=== PATIENT | female | born 1970 | race Caucasian/White ===

== ENCOUNTER → 2016-07-14 | Outpatient (CLI) | payer BC ==
--- NOTE | 2016-07-14 19:22 | Diagnostic Imaging Report ---
INDICATION: Digital mammogram bilateral screening. This is the patient's baseline study. At this time, there are no current complaints. The current study was also evaluated with a Computer Aided Detection (CAD) system. FINDINGS: The fibroglandular tissue in both breasts is heterogeneously dense. This does limit the sensitivity of this exam. There is no primary or secondary sign of malignancy noted. IMPRESSION: 1. There is no evidence of malignancy. 2. The patient should have her annual bilateral screening mammogram on schedule in July of 2017. ACR BI-RADS Category 1: Negative. Result letter will be mailed to the patient. Note: At least 10% of breast cancer is not imaged by mammography. Dictated by: Dictated on workstation # [id number]
== END ==
LOC: RAD 08:51
PROVIDERS: ATTEND Family Medicine
DX: Z12.31 Encounter for screening mammogram for malignant neoplasm of breast (principal)
CPT/HCPCS: 77067

== ENCOUNTER 2018-01-30 08:30 | Outpatient (CLI) | payer BC ==
[~2018-01-30] VITALS: Ht 170.2 cm; Wt 108.9 kg
[2018-01-30] MEDS ORDERED: L-NO1TBD PO (08:49)
[2018-01-30] MEDS ORDERED: CITA40TA11 PO (08:49)
[2018-01-30] MEDS ORDERED: MULT-35 PO (08:49)
== END 2018-01-30 11:06 | disposition home or self-care (01) ==
LOC: PREOP 08:30
PROVIDERS: ATTEND Internal Medicine
DX: Z01.818 Encounter for other preprocedural examination (principal)

== ENCOUNTER 2018-01-31 07:03 | Day surgery (SDC) | payer BC ==
--- NOTE | 2018-01-27 17:53 | HISTORY AND PHYSICAL ---
DATE OF SERVICE: EGD HISTORY AND PHYSICAL REFERRING PHYSICIAN: Dr. Morgan. HISTORY: The patient is a 47-year-old white female, who reports six week history of intermittent epigastric abdominal pain and lower precordial chest pain. Most often, will wake her up at night and lasts for an hour or so. It does not radiate and is not usually associated with nausea or vomiting. She reports no bowel habit change and she denies melena or bright red blood per rectum. She has no known past history of cholecystitis, pancreatitis or reported irritable bowel syndrome. She was started on Dexilant 4 weeks ago and reports only a questionable mild benefit. There does not appear to be any association with what she eats or with meal timing. She has had no associated dysphagia and denies odynophagia at the time of her pain. It does seem to be worse in the supine position. She denies any past history of reflux disease even while . PAST MEDICAL HISTORY: Significant for depression for which she takes citalopram 40 mg daily. OTHER MEDICATIONS: Include Seasonique 0.15/30 mcg control pills and recently started Dexilant 60 mg daily. She reports no known drug allergies. She is intolerant to CODEINE. SOCIAL HISTORY: She is with two children. She is employed with a 10+ pack year smoking history, but quit 10 years ago. She reports only occasional alcohol intake and no illicit drug use. FAMILY HISTORY: She is not aware of any family history for GI tract malignancy. Father has history of hypertension, living in his late 60s as is her mother, who reportedly has a history of degenerative disk disease with lumbar spine and anxiety. She has a maternal grandfather with a history of stroke later in life and a maternal grandmother with history of myocardial infarction, which was the cause of her in her 80s. PAST SURGICAL HISTORY: She reports no significant past surgeries. PHYSICAL EXAMINATION: GENERAL: Reveals a pleasant white female. VITAL SIGNS: Roughly 5 feet 7 inches tall, weighing 244.6 pounds, blood pressure 128/80. HEENT: Examination is unremarkable. Sclerae nonicteric. She has a Mallampati class 3 oropharyngeal configuration. Posterior pharynx reveals no evidence for erythema or exudate. NECK: Reveals no JVD, adenopathy or bruits. CHEST: Clear to auscultation. CARDIOVASCULAR: Reveals a regular rate and rhythm without murmur, S3 or S4. There is no chest wall pain to palpation over the lower precordial area. ABDOMEN: The patient does have epigastric pain to palpation without rebound or guarding on abdominal evaluation. No mass or organomegaly is noted. Bowel sounds are positive. There is no evidence for distention. EXTREMITIES: Reveal no cyanosis, clubbing or edema. ASSESSMENT: For further evaluation of epigastric and lower precordial chest pain refractory to H2 bev therapy, the patient is set up for EGD evaluation on 01/31/2018. Prep instructions were given and questions were answered. Electronic medical record was reviewed. Forty minutes of my personal care time has been spent with another 15 minutes of staff time going over the procedure with the patient and setting up the procedure. I thank you for the referral of this pleasant lady. Sincerely, Job ID: [id number] DocumentID: [id number] Dictated Date: 01/26/2018 18:30:30 Pastry Chef Date: 01/26/2018 18:51:40 Dictated By: TOM SIGALA MD
[~2018-01-31] VITALS: Ht 170.2 cm; Wt 108.9 kg
[~2018-01-31 07:03] MED LIST: CITA40TA11 PO; L-NO1TBD PO; MULT-35 PO
[2018-01-31] MEDS ORDERED: D5 LR IV SOLUTION 1,000 ML IV ONE (07:08)
[2018-01-31] MEDS ORDERED: D5 LR IV SOLUTION 1,000 ML IV STA (07:18)
[2018-01-31 07:22] VITALS: BP 118/50
[2018-01-31] MEDS ORDERED: fentaNYL INJECTION 100 MCG/2 ML AMP ONE (07:26)
[2018-01-31] MEDS ORDERED: MIDAZOLAM 2 MG/2 ML (VERSED) VIAL ONE ×3 (07:26)
[2018-01-31] MEDS ORDERED: LIDOCAINE JELLY 2% 6 ML SYRINGE ONE (07:27)
[2018-01-31] MEDS ORDERED: HURRICAINE EXT TUBE (BENZOCAINE) ONE (07:27)
[2018-01-31] MEDS ORDERED: fentaNYL INJECTION 100 MCG/2 ML AMP IVP ONE (07:30)
[2018-01-31] MEDS ORDERED: MIDAZOLAM 2 MG/2 ML (VERSED) VIAL IVP ONE (07:30)
[2018-01-31] MEDS ORDERED: HURRICAINE EXT TUBE (BENZOCAINE) XX PRN (07:30)
[2018-01-31] MEDS ORDERED: LIDOCAINE JELLY 2% 6 ML SYRINGE MM PRN (07:30)
[2018-01-31 08:15] VITALS: BP 112/62
--- NOTE | 2018-01-31 08:21 | Pre-Op Note & Conscious Sedat ---
Pre-Operative Progress Note H&P Reviewed The H&P was reviewed, patient examined and no changes noted. Date H&P Reviewed: Jan 31, 2018 Time H&P Reviewed: 07:25 Conscious Sedation Pre-Proced Time 07:25 ASA Score 2 For ASA 3 and 4: Consider anesthesia and medical clearance. Also, for patients with a history of failed moderate sedation consider anesthesia. Airway Lungs Heart ASA score ASA 1: a normal healthy patient ASA 2: a patient with a mild systemic disease (mid diabetes, controlled hypertension, obesity ASA 3: a patient with a severe systemic disease that limits activity (angina , COPD, prior Myocardial infarction) ASA 4: a patient with an incapacitating disease that is a constant threat to life (CHF, renal failure) ASA 5: a moribund patient not expected to survive 24 hrs. (ruptured aneurysm) ASA 6: a declared brain patient whose organs are being harvested. For emergent operations, add the letter E after the classification Mallampati Classification Grade 3 Sedation Plan Analgesia, Amnesia, Plan communicated to team members, Discussed options with patient/fam, Discussed risks with patient/fam The patient is an appropriate candidate to undergo the planned procedure, sedation, and anesthesia. The patient immediately re-assessed prior to indication. TOM SIGALA MD Jan 31, 2018 08:21
[2018-01-31 08:55] VITALS: BP 105/66
[2018-01-31 09:05] VITALS: BP 105/66
--- NOTE | 2018-02-01 21:48 | OPERATIVE REPORT ---
DATE OF SERVICE: 01/31/2018 EGD SUMMARY INDICATION FOR PROCEDURE: Epigastric pain refractory to proton pump inhibitor therapy. The patient was placed in the left lateral decubitus position. The endoscope was inserted in the oral cavity and under direct visualization, the esophagus was intubated. The endoscope was passed down the esophagus through the stomach and second portion of duodenum. Careful inspection was made as the endoscope was withdrawn. The patient tolerated the procedure well. FINDINGS: The posterior hypopharynx, arytenoid aperture and true and false vocal folds were unremarkable. The proximal, mid and distal esophagus were unremarkable. There is no evidence for erosive esophagitis, rings, webs, strictures or Bedoya's change. No evidence for hiatal hernia formation was noted. The cardia of the stomach was unremarkable. There are some patchy areas of mild erythema in the fundus and antrum of the stomach. A biopsy was obtained and submitted for histopathology and Helicobacter evaluation. No evidence for ulceration was noted. The pylorus, the pyloric channel, the duodenal bulb and second portion of the duodenum were unremarkable to gross inspection. ASSESSMENT: Mild patchy areas of erythema were noted in the fundus and antrum of the stomach with an otherwise normal EGD. The patient is predominantly having symptoms at night still raising the possibility of reflux. She was reassured by today's findings. It was advised that when she runs out of Dexilant to try either Pepcid or Zantac or p.r.n. antacid at bedtime and avoid food or fluid consumption 3 to 4 hours prior to bedtime. Elevating the HOB can be tried as well She is not having any associated nausea and there has been no association with fatty foods making cholecystitis less likely. If there are worsening symptoms or change in symptoms, would consider abdominal sonography, which was discussed with the patient and her . I thank you for the referral of this pleasant lady. Job ID: [id number] DocumentID: [id number] Dictated Date: 02/01/2018 17:20:17 Rental Car Deliverer Date: 02/01/2018 21:48:08 Dictated By: TOM SIGALA MD [facility]
== END 2018-01-31 09:05 | disposition home or self-care (01) ==
LOC: ENDO 07:03
PROVIDERS: ATTEND Internal Medicine
DX: K31.9 Disease of stomach and duodenum, unspecified (principal); Z87.891 Personal history of nicotine dependence
CPT/HCPCS: 84703; 88305

== ENCOUNTER → 2019-10-04 | Outpatient (CLI) | payer BC ==
--- NOTE | 2019-10-04 11:36 | Diagnostic Imaging Report ---
EXAM: Digital mammogram bilateral screening COMPARISON: 07/14/2016. TECHNIQUE: The current study was also evaluated with a Computer Aided Detection (CAD) system. There are no current complaints. FINDINGS: The fibroglandular tissue in both breasts is heterogeneously dense. This does limit the sensitivity of this exam. Overall, there does not appear to have been any significant change when compared to the prior study. No primary or secondary sign of malignancy is noted. IMPRESSION: 1. There is no radiographic evidence for malignancy. 2. The patient should have her annual bilateral screening mammogram on schedule in September 2020. ACR BI-RADS Category 1: Negative. Result letter will be mailed to the patient. Note: At least 10% of breast cancer is not imaged by mammography. Dictated by: Dictated on workstation # [id number]
== END ==
LOC: RAD 07:36
PROVIDERS: ATTEND Family Medicine
DX: Z12.31 Encounter for screening mammogram for malignant neoplasm of breast (principal)
CPT/HCPCS: 77063; 77067

== ENCOUNTER → 2020-10-30 | Outpatient (CLI) | payer BC ==
--- NOTE | 2020-10-31 10:14 | Diagnostic Imaging Report ---
Indication: 2-D and 3-D digital screening with CAD. Compared: 09/2019, 07/2016 Findings: There are scattered fibroglandular densities of the breast. There is no architectural distortion, mass, spiculated lesion or suspicious calcifications. Impression: Stable negative mammogram BI-RADS Category 1 ACR BI-RADS Category 1: Negative. Result letter will be mailed to the patient. Note: At least 10% of breast cancer is not imaged by mammography. Dictated by: Dictated on workstation # [id number]
== END ==
LOC: RAD 10:30
PROVIDERS: ATTEND Family Medicine
DX: Z12.31 Encounter for screening mammogram for malignant neoplasm of breast (principal)
CPT/HCPCS: 77063; 77067

== ENCOUNTER → 2021-11-03 | Outpatient (CLI) | payer BC ==
[~2021-11-03] MED LIST changes: -CITA40TA11 PO; +CITA40TA13 PO
--- NOTE | 2021-11-03 15:09 | Diagnostic Imaging Report ---
INDICATION: Bilateral digital 3-D screening with CAD COMPARED: 10/2020 and 09/2019 and 07/2016 FINDINGS: Density 2. No breast mass, spiculated lesion, architectural distortion, suspicious calcifications or evidence for malignancy. There has been no change. IMPRESSION: BI-RADS Category 1 ACR BI-RADS Category 1: Negative. Result letter will be mailed to the patient. Note: At least 10% of breast cancer is not imaged by mammography. Dictated by: Dictated on workstation # [id number]
== END ==
LOC: RAD 09:17
PROVIDERS: ATTEND Family Medicine
DX: Z12.31 Encounter for screening mammogram for malignant neoplasm of breast (principal)
CPT/HCPCS: 77063; 77067

== ENCOUNTER → 2023-01-25 | Outpatient (CLI) | payer BC ==
--- NOTE | 2023-01-25 15:10 | Diagnostic Imaging Report ---
INDICATION: Routine screening. COMPARISON: 11/03/2021 and 10/30/2020. TECHNIQUE: 2D and 3D bilateral screening mammography was performed with CAD. FINDINGS: Both breasts are heterogeneously dense, limiting the sensitivity of mammography. There are two densities in the lateral right breast seen on the CC view at mid depth. One of the densities is seen on the MLO view projecting above the nipple line. A second density is not well-visualized on the MLO view. Additional views of these areas are recommended. The left breast is unremarkable. No malignant-appearing microcalcifications are seen. The axillae are unremarkable. IMPRESSION: Right breast densities. Additional views are recommended for further evaluation. ACR BI-RADS Category 0: Incomplete. (Needs additional imaging evaluation). Result letter will be mailed to the patient. Note: At least 10% of breast cancer is not imaged by mammography. Dictated by: Dictated on workstation # [id number]
== END ==
LOC: RAD 09:02
PROVIDERS: ATTEND Family Medicine
DX: Z12.31 Encounter for screening mammogram for malignant neoplasm of breast (principal); R92.30 Dense breasts, unspecified
CPT/HCPCS: 77063; 77067